=== PATIENT | female | born 1965 | race African-American/Black ===

== ENCOUNTER 2017-01-12 09:01 | Inpatient (IN) | payer MEDICARE, MEDICAID ==
[~2017-01-12] VITALS: Ht 167.6 cm; Wt 103.4 kg
[2017-01-12] MEDS ORDERED: TOPA200 PO (09:33)
[2017-01-12] MEDS ORDERED: BENZ2TAB7 PO (09:33)
[2017-01-12] MEDS ORDERED: METO-385 PO (09:33)
[2017-01-12] MEDS ORDERED: OMEG-118 PO (09:33)
[2017-01-12] MEDS ORDERED: LEVO100T9 PO (09:33)
[2017-01-12] MEDS ORDERED: ZIPR80CA9 PO (09:33)
[2017-01-12 10:05] LABS: BASOPHILS % 0.5 % (0.0-2.0); EOSINOPHILS % 3.3 % (0.0-5.0); HEMOGLOBIN. 11.7 g/dL (12.0-16.0); LYMPHOCYTES % 39.3 % (20.0-50.0); MEAN CORPUSCULAR HEMOGLOBIN 27.7 pg (28.0-32.0); MEAN CORPUSCULAR VOLUME 85.2 fL (81.0-99.0); MEAN PLATELET VOLUME 7.8 fl (7.4-10.4); MONOCYTES % 9.8 % (2.0-8.0); NEUTROPHILS % 47.1 % (40.0-76.0); PLATELET 198 x1000/uL (130-400); RED BLOOD CELL COUNT 4.22 mill/uL (4.2-5.4); RED CELL DISTRIBUTION WIDTH 13.8 % (11.6-14.6)
[2017-01-12 10:06] LABS: INR 1.1; PROTHROMBIN TIME 11.1 sec (9.4-11.6)
[2017-01-12 10:12] LABS: CARBON DIOXIDE 24 mEq/L (21-32); CHLORIDE 113 mEq/L (98-107); CREATINE KINASE 74 IU/L (26-192); CREATINE KINASE MB FRACTION 1.1 ng/mL (0.5-3.6); ETHANOL BLOOD < 10 mg/dL; TROPONIN I < 0.02 ng/mL (0.00-0.04)
[2017-01-12] MEDS ORDERED: SODIUM CHLORIDE 0.9% 1,000 ML IV ONE (10:43)
[2017-01-12] MEDS ORDERED: MAGNESIUM/ALUMINUM HYDROXIDE/SIMETHICONE 30ML UDC PO PRN (11:45)
[2017-01-12] MEDS ORDERED: NITROGLYCERIN 0.4MG TABLET SL SL PRN (11:45)
[2017-01-12] MEDS ORDERED: GUAIFENESIN 200MG/10ML SUGAR FREE UDC PO PRN (11:45)
[2017-01-12] MEDS ORDERED: KETOROLAC 15MG/ML VIAL IV PRN (11:45)
[2017-01-12] MEDS ORDERED: HALOPERIDOL LACTATE 5MG/ML VIAL IM PRN (11:45)
[2017-01-12] MEDS ORDERED: ONDANSETRON HCL 4MG/2ML VIAL IV PRN (11:45)
[2017-01-12] MEDS ORDERED: NA PHOS,M-B/NA PHOS,DI-BA ENEMA 118ML PR PRN (11:45)
[2017-01-12] MEDS ORDERED: DOCUSATE SODIUM 100MG CAPSULE PO PRN (11:45)
[2017-01-12] MEDS ORDERED: CLONIDINE 0.1MG TABLET PO PRN (11:45)
[2017-01-12] MEDS ORDERED: IPRATROPIUM/ALBUTEROL 0.5-3(2.5)MG/3ML NEB INH PRN (11:45)
[2017-01-12] MEDS ORDERED: ACETAMINOPHEN 325MG TABLET PO PRN (11:45)
[2017-01-12 12:00] VITALS: BP 126/69
[2017-01-12 12:14] VITALS: BP 109/65
[2017-01-12 12:20] LABS: CLARITY URINE CLEAR (CLEAR); COLOR URINE YELLOW (YELLOW); GLUCOSE URINE NEGATIVE (NEGATIVE); KETONES URINE NEGATIVE (NEGATIVE); LEUKOCYTE ESTERASE URINE TRACE (NEGATIVE); NITRITE URINE NEGATIVE (NEGATIVE); OCCULT BLOOD URINE NEGATIVE (NEGATIVE); PH URINE 7.5 (4.5-8.0); PROTEIN URINE NEGATIVE (NEGATIVE); SPECIFIC GRAVITY URINE 1.014 (1.005-1.030); UROBILINOGEN URINE 0.2 E.U./dL (0.2-1.0)
[2017-01-12 12:39] LABS: *AMPHETAMINES SCREEN URINE NEGATIVE (NEGATIVE); *BARBITURATES SCREEN URINE NEGATIVE (NEGATIVE); *BENZODIAZEPINES SCREEN URINE NEGATIVE (NEGATIVE); *COCAINE SCREEN URINE NEGATIVE (NEGATIVE); CANNABINOID URINE SCREEN NEGATIVE (NEGATIVE); METHADONE URINE SCREEN NEGATIVE (NEGATIVE); OPIATES URINE SCREEN NEGATIVE (NEGATIVE); PHENCYCLIDINE URINE SCREEN NEGATIVE (NEGATIVE)
[2017-01-12] MEDS: SODIUM CHLORIDE 0.9% 1,000 ML IV SCH (15:33)
[2017-01-12] MEDS: ENOXAPARIN 30MG/0.3ML SYR SUBCUT SCH (15:33)
[2017-01-12 16:00] VITALS: BP 122/72
[2017-01-12] MEDS ORDERED: LEVOFLOXACIN 500MG PREMIX 100 ML IV SCH (17:30)
[2017-01-12 20:00] VITALS: BP 121/94
[2017-01-12] MEDS ORDERED: PNEUMOCOCCAL 23-VAL P-SAC VAC 0.5 ML IM ONE (20:00)
[2017-01-12] MEDS ORDERED: ZOLPIDEM TARTRATE 5MG TABLET PO PRN (21:00)
[2017-01-12] MEDS: FAMOTIDINE 20MG/2ML VIAL IV SCH (21:12)
[2017-01-13] VITALS: BP 107/63
[2017-01-13] MEDS: SODIUM CHLORIDE 0.9% 1,000 ML IV SCH ×2 (02:06→14:11)
[2017-01-13] MEDS: ENOXAPARIN 30MG/0.3ML SYR SUBCUT SCH ×2 (02:07→12:37)
[2017-01-13 04:00] VITALS: BP 123/80
[2017-01-13] MEDS: LEVOTHYROXINE SODIUM 112MCG TABLET PO SCH (06:14)
[2017-01-13 08:30] VITALS: BP 109/63
[2017-01-13] MEDS: FAMOTIDINE 20MG/2ML VIAL IV SCH ×2 (08:41→21:08)
[2017-01-13 12:00] VITALS: BP 102/63
[2017-01-13 16:00] VITALS: BP 129/75
[2017-01-13] MEDS: TOPIRAMATE 100MG TABLET PO SCH (16:14)
[2017-01-13] MEDS: BENZTROPINE MESYLATE 2MG TABLET PO SCH (16:14)
[2017-01-13] MEDS: ZIPRASIDONE HCL 80MG CAPSULE PO SCH (16:14)
[2017-01-13 20:00] VITALS: BP 110/73
[2017-01-14] VITALS: BP 116/70
[2017-01-14] MEDS: ENOXAPARIN 30MG/0.3ML SYR SUBCUT SCH (01:29)
[2017-01-14 04:00] VITALS: BP 118/65
[2017-01-14] MEDS: LEVOTHYROXINE SODIUM 112MCG TABLET PO SCH (06:19)
[2017-01-14] MEDS: SODIUM CHLORIDE 0.9% 1,000 ML IV SCH (06:19)
[2017-01-14 08:00] VITALS: BP 121/71
[2017-01-14] MEDS ORDERED: LEVOTHYROXINE SODIUM 100MCG TABLET PO SCH (09:00)
[2017-01-14] MEDS ORDERED: FISH OIL/OMEGA-3 FATTY ACIDS 1000MG CAPSULE PO SCH (09:00)
[2017-01-14] MEDS: FAMOTIDINE 20MG/2ML VIAL IV SCH (09:20)
[2017-01-14] MEDS: TOPIRAMATE 100MG TABLET PO SCH (09:20)
[2017-01-14] MEDS: ZIPRASIDONE HCL 80MG CAPSULE PO SCH (09:20)
[2017-01-14] MEDS: BENZTROPINE MESYLATE 2MG TABLET PO SCH (09:21)
[2017-01-14 12:00] VITALS: BP 112/74
[2017-01-14 13:01] VITALS: BP 112/74
== END 2017-01-14 13:25 | disposition home or self-care (01) | DRG 917 ==
LOC: EDBEDREQTM 10:21 → EDBEDREQ 10:21 → ER 10:56 → ENRESERV 10:57 → 5WST 11:19 → SUPCPDRO 11:36
PROVIDERS: ADMIT Internal Medicine; ATTEND Internal Medicine
DX: T42.6X1A Poisoning by other antiepileptic and sedative-hypnotic drugs, accidental (unintentional), initial encounter (principal); G93.40 Encephalopathy, unspecified; N39.0 Urinary tract infection, site not specified; F25.9 Schizoaffective disorder, unspecified; I10 Essential (primary) hypertension; T38.1X1A Poisoning by thyroid hormones and substitutes, accidental (unintentional), initial encounter; T46.6X1A Poisoning by antihyperlipidemic and antiarteriosclerotic drugs, accidental (unintentional), initial encounter; T47.0X1A Poisoning by histamine H2-receptor blockers, accidental (unintentional), initial encounter; T42.8X1A Poisoning by antiparkinsonism drugs and other central muscle-tone depressants, accidental (unintentional), initial encounter; E03.9 Hypothyroidism, unspecified; Z79.899 Other long term (current) drug therapy; Y92.89 Other specified places as the place of occurrence of the external cause; F79 Unspecified intellectual disabilities
CPT/HCPCS: 36415; 71010; 80053; 80061; 80165; 80305; 80307; 80329; 81001; 82550; 82553; 83036; 83735; 84443; 84484; 85025; 85610; 85730; 87086; 90732; 93005; 93970; 99291; G0482; J1650; J1956; J3490; J7030

== ENCOUNTER 2018-01-09 13:31 | Emergency (ER) | payer MEDICARE, MEDICAID ==
[~2018-01-09] VITALS: Ht 160 cm; Wt 93.0 kg
[~2018-01-09 13:31] MED LIST: BENZ2TAB7 PO; LEVO100T9 PO; METO-385 PO; OMEG-118 PO; TOPA200 PO; ZIPR80CA9 PO
[2018-01-09 13:37] VITALS: BP 124/76
== END 2018-01-09 17:43 | disposition home or self-care (01) ==
LOC: ER 13:31
DX: S09.8XXA Other specified injuries of head, initial encounter (principal); Y04.0XXA Assault by unarmed brawl or fight, initial encounter; R03.0 Elevated blood-pressure reading, without diagnosis of hypertension; F88 Other disorders of psychological development; Y93.89 Activity, other specified; Y92.198 Other place in other specified residential institution as the place of occurrence of the external cause
CPT/HCPCS: 70450; 99284

== ENCOUNTER 2018-11-28 11:20 | Emergency (ER) | payer MEDICARE, MEDICAID ==
[~2018-11-28] VITALS: Ht 167.6 cm; Wt 102.0 kg
[2018-11-28 12:00] VITALS: BP 125/89
[2018-11-28] MEDS: IBUPROFEN 800MG TABLET PO ONE (12:03)
[2018-11-28] MEDS: AMOXICILLIN 500 MG CAPSULE PO ONE (12:13)
== END 2018-11-28 12:22 | disposition home or self-care (01) ==
LOC: ER 11:20
DX: K04.7 Periapical abscess without sinus (principal); I10 Essential (primary) hypertension; E03.9 Hypothyroidism, unspecified; R68.84 Jaw pain; Z91.018 Allergy to other foods
CPT/HCPCS: 99283